=== PATIENT | female | born 1980 ===

== ENCOUNTER 2017-05-01 08:40 | Emergency (ER) | payer SELFPAY ==
[2017-05-01 09:13] VITALS: RESP 18
[2017-05-01 09:18] VITALS: BP 134/87; O2SAT 98
[2017-05-01 09:21] VITALS: TEMP 98.8
[2017-05-01] MEDS ORDERED: Albuterol-Ipratrop 3 mg / 0.5 (3 ml) UD ONE ×2 (09:23→09:24)
[2017-05-01] MEDS ORDERED: Albuterol-Ipratrop 3 mg / 0.5 (3 ml) UD INH STA ×3 (09:26→10:27)
[2017-05-01 10:01] LABS: BASO # 0.1 K/uL (0.0-0.2); BASO % 0.8 % (0.0-2.0); EOS # 0.9 K/uL (0.0-0.7); EOS % 10.1 % (0.0-4.0); HEMATOCRIT 41.3 % (34.0-47.0); LYMPH % 23.1 % (20.0-40.0); MEAN CELL VOLUME 83.4 fl (81.0-99.0); MEAN CORPUSCULAR HEMOGLOBIN 27.6 pg (27.0-31.0); MEAN CORPUSCULAR HGB CONC 33.2 g/dL (33.0-37.0); MEAN PLATELET VOLUME 8.5 fl (7.2-11.7); MONO # 0.5 K/uL (0.0-0.8); MONO % 5.9 % (0.0-10.0); NEUT # 5.3 K/uL (1.8-7.0); NEUT % 60.1 % (50.0-75.0); RED CELL DISTRIBUTION WIDTH 13.8 % (11.5-14.5); WHITE BLOOD COUNT 8.7 K/uL (4.8-10.8)
[2017-05-01 10:11] LABS: BLOOD UREA NITROGEN 16 mg/dl (7-17); CALCIUM 8.7 mg/dL (8.4-10.2); CARBON DIOXIDE 23 mmol/L (22-30); CHLORIDE 107 mmol/L (98-107); GFR AFRICAN-AMERICAN > 60; GLUCOSE,RANDOM 100 mg/dL (65-105); POTASSIUM 4.1 MMOL/L (3.6-5.0); SODIUM 142 mmol/l (132-148)
--- NOTE | 2017-05-01 10:13 | ED PDOC ---
HPI: SOB/CHF/COPD Time Seen by Provider: 05/01/17 09:04 Chief Complaint (Nursing): Shortness Of Breath Chief Complaint (Provider): Shortness of breath History Per: Patient History/Exam Limitations: no limitations Onset/Duration Of Symptoms: Days (2) Current Symptoms Are (Timing): Still Present Additional Complaint(s): Patient is a 37 y/o female with a past medical history of diabetes presenting to the emergency department for shortness of breath with associated wheezing, chest pain, and dry cough x2 days that is worse this morning. Reports using nebulizer once with no relief of symptoms. Also notes having a similar attack last year and was admitted once for same complaint, but denies a history of asthma or intubation. Also denies fever and other complaints. PCP: Dr. Lauri Jasso Past Medical History Reviewed: Historical Data, Nursing Documentation, Vital Signs Vital Signs: Last Vital Signs Temp 98.8 F 05/01/17 09:20 Pulse 90 05/01/17 12:44 Resp 18 05/01/17 09:17 BP 134/87 05/01/17 09:17 Pulse Ox 98 05/01/17 12:44 - Medical History PMH: Asthma, Diabetes Denies: Chronic Kidney Disease - Surgical History Surgical History: Appendectomy, Cholecystectomy, - Family History Family History: States: Unknown Family Hx - Social History Current smoker - smoking cessation education provided: No Ex-Smoker (has not smoked in the last 12 months): No Alcohol: None Drugs: Denies - Home Medications Home Medications: Ambulatory Orders Medication Instructions Recorded Prednisone 40 mg PO DAILY #10 tab 08/06/15 Azithromycin [Zithromax Z-Samir] 250 mg PO DAILY #1 packet 09/02/15 Methylprednisolone [Medrol] 8 mg PO DAILY #7 tab 09/02/15 Omeprazole 20 mg PO DAILY #30 ecc 09/02/15 Azithromycin [Zithromax] 250 mg PO DAILY #6 tablet 09/24/15 Promethazine/Codeine 5 ml PO Q8 #60 ml 09/24/15 [Codeine/Promethazine 10 MG/5 Ml-6.25 MG/5 Ml] predniSONE [predniSONE Tab] 10 mg PO TID #15 tab 09/24/15 Clindamycin [Cleocin] 300 mg PO TID #30 cap 12/17/15 Naproxen [Naprosyn] 500 mg PO Q12H #20 tab 12/17/15 Ibuprofen [Motrin] 600 mg PO Q8 PRN #21 tab 04/05/16 Penicillin VK [Pen-Vee K] 500 mg PO QID #40 tab 04/05/16 Albuterol 0.083% [Albuterol 0.083% 2.5 mg IH Q4H PRN #50 neb 05/01/17 Inhal Elaine (2.5 mg/3 ml) UD] Albuterol HFA [Ventolin HFA 90 2 puff IH Q4H #1 puff 05/01/17 mcg/actuation (8 g)] Fluticasone/Salmeterol 250/50 1 puff IH Q12 #1 inh 05/01/17 [Advair Diskus] Prednisone 50 mg PO DAILY #5 tablet 05/01/17 - Allergies Allergies/Adverse Reactions: Allergies Allergy/AdvReac Type Severity Reaction Status Date / Time No Known Allergies Allergy Verified 12/17/15 12:41 Review of Systems ROS Statement: Except As Marked, All Systems Reviewed And Found Negative Constitutional: Negative for: Fever Cardiovascular: Positive for: Chest Pain Respiratory: Positive for: Cough (dry), Shortness of Breath, Wheezing Physical Exam - Reviewed Nursing Documentation Reviewed: Yes Vital Signs Reviewed: Yes - Physical Exam Appears: Positive for: Uncomfortable, In Acute Distress Head Exam: Positive for: ATRAUMATIC, NORMAL INSPECTION, NORMOCEPHALIC Skin: Positive for: Normal Color, Warm, DRY Eye Exam: Positive for: Normal appearance Neck: Positive for: Normal, Painless ROM Respiratory: Positive for: Decreased Breath Sounds (bilateral), Accessory Muscle Use, Wheezing (right sideded), Respiratory Distress Gastrointestinal/Abdominal: Positive for: Normal Exam, Soft. Negative for: Tenderness Extremity: Positive for: Normal ROM. Negative for: Pedal Edema Neurologic/Psych: Positive for: Alert, Oriented (x3) - Laboratory Results Result Diagrams: 05/01/17 09:53 05/01/17 09:53 - ECG ECG Rhythm: Positive for: Normal QRS, Normal ST Segment, Sinus Rhythm. Negative for: ST/T Changes Rate: 90 O2 Sat by Pulse Oximetry: 98 (RA) Pulse Ox Interpretation: Normal Nebulizer Treatments/Peak Flow - Duonebs Number of Bronchodilator Doses given?: 3 - Pre/Post Peak Flow Pre Treatment Peak Flow: 160 Post treatment Peak Flow: 200 - Steroid Treatment Steroid: IV - Clinical Response Clinical Response: Improved Medical Decision Making Medical Decision Making: Time: 09:26 Initial impression: Respiratory distress. Differential diagnoses include but not limited to: asthma exacerbation, pneumonia, and bronchitis. Initial plan: EKG Labs Chest X-ray Albuterol 3 mL INH Prednisone 125 mg IVP Blood Culture Peak flow assessment pre/post treatment Reevaluation 1215pm Pt is significantly improved subjectively and on the exam. Ambulating without dyspnea or hypoxia in ED. Scribe Attestation: Documented by Gracie Elias, acting as a scribe for Dave Dave MD. Provider Scribe Attestation: All medical record entries made by the Scribe were at my direction and personally dictated by me. I have reviewed the chart and agree that the record accurately reflects my personal performance of the history, physical exam, medical decision making, and the department course for this patient. I have also personally directed, reviewed, and agree with the discharge instructions and disposition. Disposition - Clinical Impression Clinical Impression: Bronchitis - Patient ED Disposition Is Patient to be Admitted: No Doctor Will See Patient In The: Office Counseled Patient/Family Regarding: Studies Performed, Diagnosis, Need For Followup - Disposition Referrals: [facility] [Outside] Disposition: Routine/Home Disposition Time: 12:47 Condition: GOOD Additional Instructions: Take your medications as instructed. Follow up with your PCP in 2-3 days. Prescriptions: Albuterol 0.083% [Albuterol 0.083% Inhal Elaine (2.5 mg/3 ml) UD] 2.5 mg IH Q4H PRN #50 neb PRN Reason: dyspnea Albuterol HFA [Ventolin HFA 90 mcg/actuation (8 g)] 2 puff IH Q4H #1 puff Fluticasone/Salmeterol 250/50 [Advair Diskus] 1 puff IH Q12 #1 inh Prednisone 50 mg PO DAILY #5 tablet Instructions: Acute Bronchitis (ED)
[2017-05-01 10:37] VITALS: PULSE 90
--- NOTE | 2017-05-01 12:27 | RAD ---
HISTORY: Dyspnea COMPARISON: 09/24/2015. FINDINGS: LUNGS: No active pulmonary disease. PLEURA: No significant pleural effusion identified, no pneumothorax apparent. CARDIOVASCULAR: Normal. OSSEOUS STRUCTURES: No significant abnormalities. VISUALIZED UPPER ABDOMEN: Normal. OTHER FINDINGS: None. IMPRESSION: No active disease. No significant interval change compared to the prior examination(s). Limitations of the current examination: Poor inspiratory effort, portable technique.
--- NOTE | 2017-05-02 08:46 | CARD ---
APPROVED REPORT EKG Measurement Heart [id number] <Conclusion> Normal sinus rhythm Left anterior fascicular block Abnormal ECG
== END 2017-05-01 13:30 | disposition home or self-care (01) ==
LOC: H.ER 08:40
DX: J20.9 Acute bronchitis, unspecified (principal); E11.9 Type 2 diabetes mellitus without complications
CPT/HCPCS: 71010; 80048; 81025; 83880; 84484; 85025; 87040; 93005; 94640; 96374; 99283; J2930

== ENCOUNTER 2017-05-22 12:41 | Observation (INO) | payer SELFPAY ==
[2017-05-22] MEDS ORDERED: Albuterol-Ipratrop 3 mg / 0.5 (3 ml) UD ONE ×2 (12:54→14:57)
[2017-05-22] MEDS ORDERED: Albuterol-Ipratrop 3 mg / 0.5 (3 ml) UD INH STA ×2 (13:09→14:54)
--- NOTE | 2017-05-22 13:21 | ED PDOC ---
HPI: SOB/CHF/COPD Time Seen by Provider: 05/22/17 12:50 Chief Complaint (Nursing): Shortness Of Breath Chief Complaint (Provider): Shortness Of Breath History Per: Patient History/Exam Limitations: no limitations Onset/Duration Of Symptoms: Days (x 2 weeks) Current Symptoms Are (Timing): Still Present Recently: Seen In ED Additional Complaint(s): Myra is a 37 y/o who presents to the ED complaining of cough and difficulty breathing since yesterday. States no medical history but that she was seen here 2 weeks ago for the same complaint, and treated with Albuterol and Prednisone. Patient is a nonsmoker. No fever or chills. PMD: Lauri Jasso Past Medical History Reviewed: Historical Data, Nursing Documentation, Vital Signs Vital Signs: Last Vital Signs Temp 98.9 F 05/22/17 12:43 Pulse 96 H 05/22/17 12:43 Resp 16 05/22/17 12:43 BP 131/60 05/22/17 12:43 Pulse Ox 93 L 05/22/17 12:43 - Medical History PMH: Asthma, Diabetes Denies: Chronic Kidney Disease - Surgical History Surgical History: Appendectomy, Cholecystectomy, - Family History Family History: States: Unknown Family Hx - Home Medications Home Medications: Ambulatory Orders Medication Instructions Recorded Prednisone 40 mg PO DAILY #10 tab 08/06/15 Azithromycin [Zithromax Z-Samir] 250 mg PO DAILY #1 packet 09/02/15 Methylprednisolone [Medrol] 8 mg PO DAILY #7 tab 09/02/15 Omeprazole 20 mg PO DAILY #30 ecc 09/02/15 Azithromycin [Zithromax] 250 mg PO DAILY #6 tablet 09/24/15 Promethazine/Codeine 5 ml PO Q8 #60 ml 09/24/15 [Codeine/Promethazine 10 MG/5 Ml-6.25 MG/5 Ml] predniSONE [predniSONE Tab] 10 mg PO TID #15 tab 09/24/15 Clindamycin [Cleocin] 300 mg PO TID #30 cap 12/17/15 Naproxen [Naprosyn] 500 mg PO Q12H #20 tab 12/17/15 Ibuprofen [Motrin] 600 mg PO Q8 PRN #21 tab 04/05/16 Penicillin VK [Pen-Vee K] 500 mg PO QID #40 tab 04/05/16 Albuterol 0.083% [Albuterol 0.083% 2.5 mg IH Q4H PRN #50 neb 05/01/17 Inhal Elaine (2.5 mg/3 ml) UD] Albuterol HFA [Ventolin HFA 90 2 puff IH Q4H #1 puff 05/01/17 mcg/actuation (8 g)] Fluticasone/Salmeterol 250/50 1 puff IH Q12 #1 inh 05/01/17 [Advair Diskus] Prednisone 50 mg PO DAILY #5 tablet 05/01/17 - Allergies Allergies/Adverse Reactions: Allergies Allergy/AdvReac Type Severity Reaction Status Date / Time No Known Allergies Allergy Verified 12/17/15 12:41 Review of Systems ROS Statement: Except As Marked, All Systems Reviewed And Found Negative Constitutional: Negative for: Fever, Chills Respiratory: Positive for: Cough, Shortness of Breath Physical Exam - Reviewed Nursing Documentation Reviewed: Yes Vital Signs Reviewed: Yes - Physical Exam Appears: Positive for: Non-toxic, No Acute Distress Head Exam: Positive for: ATRAUMATIC, NORMAL INSPECTION, NORMOCEPHALIC Skin: Positive for: Normal Color, Warm, Dry Eye Exam: Positive for: EOMI, Normal appearance, PERRL Neck: Positive for: Normal, Painless ROM, Supple Cardiovascular/Chest: Positive for: Regular Rate, Rhythm. Negative for: Murmur Respiratory: Positive for: Decreased Breath Sounds (diminished air flow), Respiratory Distress (Moderate) Extremity: Positive for: Normal ROM. Negative for: Pedal Edema, Deformity Neurologic/Psych: Positive for: Alert, Oriented. Negative for: Motor/Sensory Deficits - ECG O2 Sat by Pulse Oximetry: 93 (RA) Pulse Ox Interpretation: Normal Medical Decision Making Medical Decision Making: Time: 13:09 Initial Plan: --BMP --CBC --Duoneb x 3 --Methylprednisolone IV --Peak flow pre/post treatment --Pending reevaluation Scribe Attestation: Documented by Alexa Edwards, acting as a scribe for Sylvester Juárez PA-C Provider Scribe Attestation: All medical record entries made by the Scribe were at my direction and personally dictated by me. I have reviewed the chart and agree that the record accurately reflects my personal performance of the history, physical exam, medical decision making, and the department course for this patient. I have also personally directed, reviewed, and agree with the discharge instructions and disposition. Disposition - Disposition
[2017-05-22 13:26] LABS: BASO % 0.5 % (0.0-2.0); EOS # 1.4 K/uL (0.0-0.7); EOS % 13.9 % (0.0-4.0); HEMATOCRIT 42.6 % (34.0-47.0); LYMPH # 2.3 K/uL (1.0-4.3); LYMPH % 22.2 % (20.0-40.0); MEAN CELL VOLUME 83.8 fl (81.0-99.0); MEAN CORPUSCULAR HEMOGLOBIN 27.3 pg (27.0-31.0); MEAN CORPUSCULAR HGB CONC 32.6 g/dL (33.0-37.0); MEAN PLATELET VOLUME 8.3 fl (7.2-11.7); MONO # 0.7 K/uL (0.0-0.8); MONO % 6.4 % (0.0-10.0); NEUT # 5.8 K/uL (1.8-7.0); NRBC % 0.1 % (0.0-0.0); WHITE BLOOD COUNT 10.2 K/uL (4.8-10.8)
[2017-05-22 13:44] LABS: BLOOD UREA NITROGEN 15 mg/dl (7-17); CALCIUM 9.3 mg/dL (8.4-10.2); CARBON DIOXIDE 24 mmol/L (22-30); CHLORIDE 104 mmol/L (98-107); GFR AFRICAN-AMERICAN > 60; GLUCOSE,RANDOM 94 mg/dL (65-105); POTASSIUM 3.8 MMOL/L (3.6-5.0); SODIUM 144 mmol/l (132-148)
[2017-05-22] MEDS ORDERED: Magnesium Sulfate 2 gm/50 ml 2 GM/50 ML BAG IVPB ONE (16:02)
[2017-05-22] MEDS ORDERED: Magnesium Sulfate 2 gm/50 ml 2 GM/50 ML BAG ONE (16:28)
--- NOTE | 2017-05-22 16:57 | RAD ---
HISTORY: sob COMPARISON: Comparison is made to 05/01/2017 TECHNIQUE: Chest PA and lateral FINDINGS: LUNGS: No evidence of new infiltrate or consolidation in the lungs. PLEURA: No significant pleural effusion identified. No pneumothorax apparent. CARDIOVASCULAR: Normal. OSSEOUS STRUCTURES: No significant abnormalities. VISUALIZED UPPER ABDOMEN: Normal. OTHER FINDINGS: None. IMPRESSION: No evidence of new consolidation in the lungs.
--- NOTE | 2017-05-22 17:06 | CP.PCM.HP ---
History of Present Illness - History of Present Illness History of Present Illness: Myra Sutherland is a pleasant 37 yo lady with past medical history of PCOS, dyslipidemia, IGT who presented to the ED with SOB. She stated that symptoms began 2 weeks ago and was diagnosed with bronchitis. Symptoms progressively worsened yesterday morning requiring her to use her inhaler every hour until presentation to the ER. Shares of night time cough nightly for the past 2 weeks. Shares of similar symtoms 2 years ago, where she was treated for with duonebs. She shares of chills this morning. Denies nausea/vomiting/ diarrhea. Denies official diagnosis of asthma. Pmhx: PCOS, IGT, dyslipidemia Psurghx: appendix 1986; galbladder 2009; c/s 2013 Meds: Albuterol 108 mcg; Fluticasone, Metformin 850 mg dDaily; Ocella 3-0.03 Psochx: Denies: smoking, alcohol, illicit drugs; Pt shares of living in the basement for 4 years; mold was found then when they remodeled. Recently found mold again in one of the wall. They have a pet dog. They also have carpeting. ED vitals: 135/71 86 bpm 95% on 2L NC, rr 20; lowest O2 sat 93 % at 13:22 ED course: Duonebs x 4; Mg; O2 NC 2 L pmd: Florencio CHRISTOPHER chart reviewed Present on Admission - Present on Admission Any Indicators Present on Admission: No Review of Systems - Review of Systems Systems not reviewed;Unavailable: Respiratory Distress - Constitutional Constitutional: As Per HPI - Respiratory Respiratory: Dyspnea, Wheezing Past Patient History - Past Medical History & Family History Past Medical History?: Yes - Past Social History Smoking Status: Never Smoked Alcohol: None Drugs: Denies - CARDIAC Hx Cardiac Disorders: No - PULMONARY Hx Asthma: Yes Other/Comment: First episode similar to today was 2 years ago. Shared of Bronchitis diagnosis 2 weeks ago. - NEUROLOGICAL Hx Neurological Disorder: No - HEENT Hx HEENT Problems: No - RENAL Hx Chronic Kidney Disease: No - ENDOCRINE/METABOLIC Hx Endocrine Disorders: No Other/Comment: PCOS, IGT - HEMATOLOGICAL/ONCOLOGICAL Hx Blood Disorders: No - INTEGUMENTARY Hx Dermatological Problems: No - MUSCULOSKELETAL/RHEUMATOLOGICAL Hx Musculoskeletal Disorders: No - GASTROINTESTINAL Hx Gastrointestinal Disorders: No - GENITOURINARY/GYNECOLOGICAL Hx Genitourinary Disorders: No - PSYCHIATRIC Hx Psychophysiologic Disorder: No Hx Substance Use: No - SURGICAL HISTORY Hx Appendectomy: Yes Hx Cholecystectomy: Yes - ANESTHESIA Hx Anesthesia: Yes Hx Anesthesia Reactions: No Hx Malignant Hyperthermia: No Meds Allergies/Adverse Reactions: Allergies Allergy/AdvReac Type Severity Reaction Status Date / Time No Known Allergies Allergy Verified 12/17/15 12:41 Physical Exam - Head Exam Head Exam: NORMAL INSPECTION - Eye Exam Eye Exam: EOMI, Normal appearance - Respiratory Exam Respiratory Exam: Wheezes - Cardiovascular Exam Cardiovascular Exam: REGULAR RHYTHM, +S1, +S2 - GI/Abdominal Exam GI & Abdominal Exam: Normal Bowel Sounds, Soft - Extremities Exam Extremities exam: Positive for: normal inspection - Neurological Exam Neurological exam: Alert, Oriented x3 - Psychiatric Exam Psychiatric exam: Normal Affect, Normal Mood Results - Vital Signs Recent Vital Signs: Last Vital Signs Temp 98.9 F 05/22/17 12:43 Pulse 86 05/22/17 16:49 Resp 20 05/22/17 16:49 BP 135/71 05/22/17 16:49 Pulse Ox 95 05/22/17 16:49 - Labs Result Diagrams: 05/22/17 13:15 05/22/17 13:15 Labs: Laboratory Results - last 24 hr 05/22/17 05/22/17 13:15 13:15 WBC 10.2 RBC 5.09 Hgb 13.9 Hct 42.6 MCV 83.8 MCH 27.3 MCHC 32.6 L RDW 14.0 Plt Count 236 MPV 8.3 Neut % (Auto) 57.0 Lymph % (Auto) 22.2 [place] % (Auto) 6.4 Eos % (Auto) 13.9 H Baso % (Auto) 0.5 Neut # 5.8 Lymph # 2.3 [place] # 0.7 Eos # 1.4 H Baso # 0.0 Sodium 144 Potassium 3.8 Chloride 104 Carbon Dioxide 24 Anion Gap 19 BUN 15 Creatinine 0.5 L Est GFR ( Amer) > 60 Est GFR (Non-Af Amer) > 60 Random Glucose 94 Calcium 9.3 Assessment & Plan - Assessment and Plan (Free Text) Assessment: asthma exacerbation Plan: 37 yo F pmhx PCOS, IGT, dyslipidemia presents with SOB. 1) Asthma exacerbation - Admit to Telemetry - Continue with duoneb, Mg, O2 via NC, methylprednisolone - Follow CBC, CXR 2) DVT prophylaxis - scd 3) PCOS/IGT -hold ocp; continue metformin Bob Nguyen, PGY1
[2017-05-22] MEDS ORDERED: Influenza Vaccine 18yr & older 0.5 ML/45 MCG SYR IM ONE (17:55)
[2017-05-22] MEDS: Albuterol 0.083% Inhal Sol (2.5 mg/3 mL) UD INH SCH ×2 (19:44→23:32)
[2017-05-23] MEDS: Albuterol 0.083% Inhal Sol (2.5 mg/3 mL) UD INH SCH ×3 (04:44→11:28)
[2017-05-23 05:52] LABS: BASO % 0.4 % (0.0-2.0); EOS % 0.1 % (0.0-4.0); HEMATOCRIT 41.4 % (34.0-47.0); LYMPH # 1.6 K/uL (1.0-4.3); LYMPH % 15.1 % (20.0-40.0); MEAN CELL VOLUME 84.5 fl (81.0-99.0); MEAN CORPUSCULAR HEMOGLOBIN 27.7 pg (27.0-31.0); MEAN CORPUSCULAR HGB CONC 32.8 g/dL (33.0-37.0); MEAN PLATELET VOLUME 8.2 fl (7.2-11.7); MONO # 0.5 K/uL (0.0-0.8); MONO % 4.6 % (0.0-10.0); NEUT # 8.4 K/uL (1.8-7.0); NEUT % 79.8 % (50.0-75.0); RED CELL DISTRIBUTION WIDTH 14.2 % (11.5-14.5); WHITE BLOOD COUNT 10.5 K/uL (4.8-10.8)
--- NOTE | 2017-05-23 09:35 | RAD ---
HISTORY: asthma exacerbation COMPARISON: 05/22/2017 TECHNIQUE: Chest PA and lateral FINDINGS: LUNGS: No active pulmonary disease. PLEURA: No significant pleural effusion identified. No pneumothorax apparent. CARDIOVASCULAR: Normal. OSSEOUS STRUCTURES: No significant abnormalities. VISUALIZED UPPER ABDOMEN: Normal. OTHER FINDINGS: None. IMPRESSION: No active disease.
--- NOTE | 2017-05-23 10:50 | CP.PCM.PN ---
Subjective - Date & Time of Evaluation Date of Evaluation: 05/23/17 Time of Evaluation: 10:15 - Subjective Subjective: 37 yo pmhx of PCOS, IGT, and dyslipidemia presented to ED with dyspnea; Asthma exacerbation. She shares of significant improvement of symptoms. She shares of being able to breathe without laboring. Denies overnight events. Denies N/V/Dizzines Objective - Vital Signs/Intake and Output Vital Signs (last 24 hours): Temp Pulse Resp BP Pulse Ox 98.5 F 96 H 14 122/76 96 05/23/17 07:57 05/23/17 09:00 05/23/17 07:57 05/23/17 07:57 05/23/17 07:57 Intake and Output: 05/23/17 05/23/17 06:59 18:59 Intake Total 480 Balance 480 - Medications Medications: Current Medications Albuterol Sulfate (Albuterol 0.083% Inhal Elaine (2.5 Mg/3 Ml) Ud) 2.5 mg INH RQ4 [facility] Last Admin: 05/23/17 07:49 Dose: 2.5 mg Metformin HCl (Glucophage) 850 mg PO DAILY [facility] Last Admin: 05/23/17 08:45 Dose: 850 mg Prednisone (Prednisone Tab) 40 mg PO DAILY [facility] Last Admin: 05/23/17 08:46 Dose: 40 mg - Labs Labs: 05/23/17 05:00 05/22/17 13:15 - Head Exam Head Exam: NORMAL INSPECTION - Eye Exam Eye Exam: EOMI, Normal appearance - ENT Exam ENT Exam: Mucous Membranes Moist - Neck Exam Neck Exam: Full ROM - Respiratory Exam Additional comments: R lower lung wheezing with coughing - Cardiovascular Exam Cardiovascular Exam: REGULAR RHYTHM, +S1, +S2 - Extremities Exam Extremities Exam: Full ROM - Neurological Exam Neurological Exam: Alert, Awake, CN II-XII Intact, Oriented x3 - Psychiatric Exam Psychiatric exam: Normal Affect, Normal Mood - Additional Findings Additional findings: ambulating well Assessment and Plan - Assessment and Plan (Free Text) Assessment: Asthma exacerbation significantly improved s/p duonebs, Mg. Plan: 37 yo F pmhx PCOS, IGT, dyslipidemia presented with dyspnea. 1) Asthma exacerbation - Continue with duoneb, O2 via NC, methylprednisolone 2) DVT prophylaxis - scd 3) PCOS/IGT -hold ocp; continue metformin banerjee [email or web address]
[2017-05-23 12:17] VITALS: BP 128/80; PULSE 106; RESP 16; TEMP 98.1; O2SAT 97
--- NOTE | 2017-05-23 13:58 | CP.PCM.DIS ---
Provider - Provider Date of Admission: 05/22/17 16:36 Attending physician: Yuki Suarez MD Time Spent in preparation of Discharge (in minutes): 20 Hospital Course - Lab Results Lab Results: Most Recent Lab Values WBC 10.5 K/uL (4.8-10.8) 05/23/17 05:00 RBC 4.91 Mil/uL (3.80-5.20) 05/23/17 05:00 Hgb 13.6 g/dL (12.0-16.0) 05/23/17 05:00 Hct 41.4 % (34.0-47.0) 05/23/17 05:00 MCV 84.5 fl (81.0-99.0) 05/23/17 05:00 MCH 27.7 pg (27.0-31.0) 05/23/17 05:00 MCHC 32.8 g/dL (33.0-37.0) L 05/23/17 05:00 RDW 14.2 % (11.5-14.5) 05/23/17 05:00 Plt Count 248 K/uL (130-400) 05/23/17 05:00 MPV 8.2 fl (7.2-11.7) 05/23/17 05:00 Neut % (Auto) 79.8 % (50.0-75.0) H 05/23/17 05:00 Lymph % (Auto) 15.1 % (20.0-40.0) L 05/23/17 05:00 [place] % (Auto) 4.6 % (0.0-10.0) 05/23/17 05:00 Eos % (Auto) 0.1 % (0.0-4.0) 05/23/17 05:00 Baso % (Auto) 0.4 % (0.0-2.0) 05/23/17 05:00 Neut # 8.4 K/uL (1.8-7.0) H 05/23/17 05:00 Lymph # 1.6 K/uL (1.0-4.3) 05/23/17 05:00 [place] # 0.5 K/uL (0.0-0.8) 05/23/17 05:00 Eos # 0.0 K/uL (0.0-0.7) 05/23/17 05:00 Baso # 0.0 K/uL (0.0-0.2) 05/23/17 05:00 Sodium 144 mmol/l (132-148) 05/22/17 13:15 Potassium 3.8 MMOL/L (3.6-5.0) 05/22/17 13:15 Chloride 104 mmol/L (98-107) 05/22/17 13:15 Carbon Dioxide 24 mmol/L (22-30) 05/22/17 13:15 Anion Gap 19 (10-20) 05/22/17 13:15 BUN 15 mg/dl (7-17) 05/22/17 13:15 Creatinine 0.5 mg/dL (0.7-1.2) L 05/22/17 13:15 Est GFR ( Amer) > 60 05/22/17 13:15 Est GFR (Non-Af Amer) > 60 05/22/17 13:15 POC Glucose (mg/dL) 144 mg/dL (65-110) H 05/23/17 11:08 Random Glucose 94 mg/dL (65-105) 05/22/17 13:15 Calcium 9.3 mg/dL (8.4-10.2) 05/22/17 13:15 - Hospital Course Hospital Course: 37 yo F with pmhx of PCOS IGT, dyslipidemia with acute asthma exacerbation. Treated with duonebs, Mg, methylpregnisolone. Symptoms significantly improved; non labored breathing with great saturation. Discharge Exam - Head Exam Head Exam: NORMAL INSPECTION Discharge Plan - Discharge Medications Prescriptions: Albuterol HFA [Ventolin HFA 90 mcg/actuation (8 g)] 2 puff IH Q4H #1 puff Calcium Carbonate [Caltrate] 1 tab PO DAILY #1 tab Ethinyl Estradiol/Drospirenone [Ocella 3 mg-0.03 mg Tablet] 1 tab PO DAILY #1 tablet Fluticasone/Salmeterol [Fluticasone-Salmeterol 113-14] 1 each IH Q12 #1 aer.pow.ba metFORMIN [glucOPHAGE] 850 mg PO DAILY #1 tab predniSONE [predniSONE Tab] 40 mg PO DAILY #7 tab - Follow Up Plan Condition: GOOD Disposition: HOME/ ROUTINE Additional Instructions: Continue with nebulizer, steroid treatment. Follow up in clinic in one week. call for appointment. [phone].
== END 2017-05-23 14:47 | disposition home or self-care (01) ==
LOC: H.ER 12:41 → H.ERHOLD 16:36 → H.TEL 17:27
PROVIDERS: ADMIT Family Medicine Geriatric Medicine; ATTEND Family Medicine Geriatric Medicine
DX: J45.901 Unspecified asthma with (acute) exacerbation (principal); E28.2 Polycystic ovarian syndrome; E78.5 Hyperlipidemia, unspecified; Z23 Encounter for immunization; E11.9 Type 2 diabetes mellitus without complications
CPT/HCPCS: 36415; 71020; 80048; 81025; 82164; 82948; 85025; 86039; 90471; 94640; 96374; 97161; 99285; G0378; G8978; G8979; G8980; J2930; Q2035

== ENCOUNTER 2017-07-22 20:55 | Emergency (ER) | payer SELFPAY ==
[2017-07-22] MEDS ORDERED: Albuterol-Ipratrop 3 mg / 0.5 (3 ml) UD INH STA ×3 (21:40→21:42)
[2017-07-22] MEDS ORDERED: Albuterol-Ipratrop 3 mg / 0.5 (3 ml) UD ONE (21:44)
--- NOTE | 2017-07-22 22:59 | ED PDOC ---
HPI: SOB/CHF/COPD Time Seen by Provider: 07/22/17 21:21 Chief Complaint (Nursing): Shortness Of Breath Chief Complaint (Provider): Shortness Of Breath History Per: Patient History/Exam Limitations: no limitations Onset/Duration Of Symptoms: Days (x 4) Current Symptoms Are (Timing): Still Present Additional Complaint(s): 37 year old female with past medical history of asthma presents to the ED with difficulty breathing and associated dry cough and wheezing, onset 4 days. Patient reports taking nebulizer every 4 hours with no relief. Denies fever and chest pain. PMD: Dr. Opal Baez MD Past Medical History Reviewed: Historical Data, Nursing Documentation, Vital Signs Vital Signs: Last Vital Signs Temp 99.2 F 07/22/17 21:04 Pulse 108 H 07/22/17 21:04 Resp 19 07/22/17 21:23 BP 115/61 07/22/17 21:04 Pulse Ox 98 07/22/17 23:46 - Medical History PMH: Asthma, Diabetes, Hyperlipidemia Denies: Chronic Kidney Disease - Surgical History Surgical History: Appendectomy, Cholecystectomy, - Family History Family History: States: Unknown Family Hx - Home Medications Home Medications: Ambulatory Orders Medication Instructions Recorded Calcium Carbonate [Caltrate] 1 tab PO DAILY #1 tab 05/23/17 Ethinyl Estradiol/Drospirenone 1 tab PO DAILY #1 tablet 05/23/17 [Ocella 3 mg-0.03 mg Tablet] metFORMIN [glucOPHAGE] 850 mg PO DAILY #1 tab 05/23/17 Albuterol 0.083% [Albuterol 3 ml IH Q4 PRN #20 neb 07/23/17 Sulfate 3 Ml] Albuterol HFA [Ventolin HFA 90 2 puff IH Q4H #1 puff 07/23/17 mcg/actuation (8 g)] Fluticasone/Salmeterol 1 each IH Q12 #1 aer.pow.ba 07/23/17 [Fluticasone-Salmeterol 113-14] predniSONE [predniSONE Tab] 40 mg PO DAILY #7 tab 07/23/17 - Allergies Allergies/Adverse Reactions: Allergies Allergy/AdvReac Type Severity Reaction Status Date / Time No Known Allergies Allergy Verified 07/22/17 21:06 Review of Systems ROS Statement: Except As Marked, All Systems Reviewed And Found Negative Constitutional: Negative for: Fever Cardiovascular: Negative for: Chest Pain Respiratory: Positive for: Cough (dry), Shortness of Breath Physical Exam - Reviewed Nursing Documentation Reviewed: Yes Vital Signs Reviewed: Yes - Physical Exam Appears: Positive for: Non-toxic, No Acute Distress Head Exam: Positive for: ATRAUMATIC, NORMOCEPHALIC Skin: Positive for: Normal Color, Warm, Dry Eye Exam: Positive for: EOMI, Normal appearance, PERRL Neck: Positive for: Normal, Painless ROM, Supple Cardiovascular/Chest: Positive for: Regular Rate, Rhythm. Negative for: Murmur Respiratory: Positive for: Decreased Breath Sounds (on the right), Wheezing (on the left ) Gastrointestinal/Abdominal: Positive for: Normal Exam, Soft Back: Positive for: Normal Inspection. Negative for: L CVA Tenderness, R CVA Tenderness, Vertebral Tenderness Extremity: Positive for: Normal ROM. Negative for: Pedal Edema, Deformity Neurologic/Psych: Positive for: Alert, Oriented. Negative for: Motor/Sensory Deficits - ECG O2 Sat by Pulse Oximetry: 95 (RA) Pulse Ox Interpretation: Normal - Progress Re-evaluation Time: 23:57 Condition: Re-examined, Improved Medical Decision Making Medical Decision Making: Time: 21:50 Impression: asthma exacerbation, acute bronchitis Initial Plan: --EKG --Duoneb 3 ml INH --Duoneb 3 ml INH --Duoneb 3 ml INH --Methlyprednisolone 125 mg IVP --Prednisone 60 mg PO --Peak Flow Pre/ Post --Peak Flow Pre/ Post --Peak Flow Pre/ Post EKG has been reviewed and shows normal sinus rhythm, rate 95, normal QRS and no ST changes. Scribe Attestation: Documented by Marsha Urban, acting as a scribe for Dave Dave MD Provider Scribe Attestation: All medical record entries made by the Scribe were at my direction and personally dictated by me. I have reviewed the chart and agree that the record accurately reflects my personal performance of the history, physical exam, medical decision making, and the department course for this patient. I have also personally directed, reviewed, and agree with the discharge instructions and disposition Disposition - Clinical Impression Clinical Impression: Asthma exacerbation - Patient ED Disposition Is Patient to be Admitted: No Doctor Will See Patient In The: Office Counseled Patient/Family Regarding: Studies Performed, Diagnosis, Need For Followup - Disposition Referrals: [facility] [Outside] Disposition: Routine/Home Disposition Time: 23:57 Condition: GOOD Additional Instructions: Follow up with your PCP in 2-3 days. Take your medications as instructed. Prescriptions: Albuterol 0.083% [Albuterol Sulfate 3 Ml] 3 ml IH Q4 PRN #20 neb PRN Reason: Wheezing Albuterol HFA [Ventolin HFA 90 mcg/actuation (8 g)] 2 puff IH Q4H #1 puff Fluticasone/Salmeterol [Fluticasone-Salmeterol 113-14] 1 each IH Q12 #1 aer.pow.ba predniSONE [predniSONE Tab] 40 mg PO DAILY #7 tab Instructions: Asthma (ED)
[2017-07-23 00:20] VITALS: BP 114/64; PULSE 98; RESP 16; TEMP 98.7; O2SAT 97
--- NOTE | 2017-07-23 10:52 | CARD ---
APPROVED REPORT EKG Measurement Heart [id number] <Conclusion> Normal sinus rhythm Left anterior fascicular block Abnormal ECG
== END 2017-07-23 00:19 | disposition home or self-care (01) ==
LOC: H.ER 20:55
DX: J45.901 Unspecified asthma with (acute) exacerbation (principal); E11.9 Type 2 diabetes mellitus without complications; E78.5 Hyperlipidemia, unspecified; J20.9 Acute bronchitis, unspecified; J44.0 Chronic obstructive pulmonary disease with (acute) lower respiratory infection; Z79.84 Long term (current) use of oral hypoglycemic drugs
CPT/HCPCS: 93005; 94150; 94640; 96374; 99284; J2930

== ENCOUNTER 2017-08-17 08:53 | Emergency (ER) | payer SELFPAY ==
[2017-08-17 09:18] VITALS: BP 137/89; PULSE 112; RESP 18; TEMP 100.6; O2SAT 98
--- NOTE | 2017-08-17 09:25 | ED PDOC ---
HPI: CCC, URI, Sore Throat Time Seen by Provider: 08/17/17 09:07 Chief Complaint (Nursing): ENT Problem Chief Complaint (Provider): Sore Throat History Per: Patient History/Exam Limitations: no limitations Onset/Duration Of Symptoms: Days (3 days ago) Current Symptoms Are (Timing): Still Present Additional Complaint(s): 37 y/o with a past medical history of asthma and diabetes, presents to the ED complaining of a sore throat associated with subjective fever, onset of 3 days. Patient reports that she has been having trouble swallowing, and denies any further complaints. PCP: Dr. Jasso Past Medical History Reviewed: Historical Data, Nursing Documentation, Vital Signs Vital Signs: Last Vital Signs Temp 100.6 F H 08/17/17 09:15 Pulse 112 H 08/17/17 09:15 Resp 18 08/17/17 09:15 BP 137/89 08/17/17 09:15 Pulse Ox 98 08/17/17 09:34 - Medical History PMH: Asthma, Diabetes, Hyperlipidemia Denies: Chronic Kidney Disease - Surgical History Surgical History: Appendectomy, Cholecystectomy, - Family History Family History: States: Unknown Family Hx - Social History Current smoker - smoking cessation education provided: No Ex-Smoker (has not smoked in the last 12 months): No Alcohol: None Drugs: Denies - Home Medications Home Medications: Ambulatory Orders Medication Instructions Recorded Calcium Carbonate [Caltrate] 1 tab PO DAILY #1 tab 05/23/17 Ethinyl Estradiol/Drospirenone 1 tab PO DAILY #1 tablet 05/23/17 [Ocella 3 mg-0.03 mg Tablet] metFORMIN [glucOPHAGE] 850 mg PO DAILY #1 tab 05/23/17 Albuterol 0.083% [Albuterol 3 ml IH Q4 PRN #20 neb 07/23/17 Sulfate 3 Ml] Albuterol HFA [Ventolin HFA 90 2 puff IH Q4H #1 puff 07/23/17 mcg/actuation (8 g)] Fluticasone/Salmeterol 1 each IH Q12 #1 aer.pow.ba 07/23/17 [Fluticasone-Salmeterol 113-14] predniSONE [predniSONE Tab] 40 mg PO DAILY #7 tab 07/23/17 Amoxicillin 1,000 mg PO DAILY #18 tablet 08/17/17 Naproxen [Naprosyn] 500 mg PO BID PRN #15 tablet 08/17/17 - Allergies Allergies/Adverse Reactions: Allergies Allergy/AdvReac Type Severity Reaction Status Date / Time No Known Allergies Allergy Verified 07/22/17 21:06 Review of Systems ROS Statement: Except As Marked, All Systems Reviewed And Found Negative Constitutional: Positive for: Fever ENT: Positive for: Throat Pain (painful swallowing) Physical Exam - Reviewed Nursing Documentation Reviewed: Yes Vital Signs Reviewed: Yes - Physical Exam Appears: Positive for: Non-toxic, In Acute Distress (mild painful) Head Exam: Positive for: ATRAUMATIC Skin: Positive for: Normal Color, Warm Eye Exam: Positive for: Normal appearance, EOMI, PERRL ENT: Positive for: Normal ENT Inspection, Pharynx Is (erythematous with bilateral exudates; clear, no drooling), Other (uvula midline; no tonsillar hypertrophy) Neck: Positive for: Normal, Painless ROM, Supple Cardiovascular/Chest: Positive for: Regular Rate, Rhythm. Negative for: Murmur Respiratory: Positive for: Normal Breath Sounds. Negative for: Respiratory Distress Back: Positive for: Normal Inspection Extremity: Positive for: Normal ROM. Negative for: Pedal Edema, Deformity Neurologic/Psych: Positive for: Alert, Oriented. Negative for: Motor/Sensory Deficits - ECG O2 Sat by Pulse Oximetry: 98 (RA) Pulse Ox Interpretation: Normal - Progress Condition: Improved Medical Decision Making Medical Decision Making: Time: --09:19 Impression: --37 y/o female with pharyngitis, uri Plan: --ED Urine --Dexamryhsdonr 20mg IM --ibuprofen 800mg PO --Glucose, Blood, POC --Rapid Strep Group Reassess -- Scribe Attestation: Documented by Filipe Cuevas acting as a scribe for Lise Garza MD. Disposition - Clinical Impression Clinical Impression: Strep pharyngitis - Disposition Referrals: [facility] [Outside] Disposition: Routine/Home Disposition Time: 10:04 Condition: STABLE Prescriptions: Amoxicillin 1,000 mg PO DAILY #18 tablet Naproxen [Naprosyn] 500 mg PO BID PRN #15 tablet PRN Reason: Pain, Moderate (4-7) Instructions: Strep Throat (ED) Forms: [employer] (Belarusian) Print Language: ARMENIAN
== END 2017-08-17 10:11 | disposition home or self-care (01) ==
LOC: H.ER 08:53
DX: J02.0 Streptococcal pharyngitis (principal); E11.9 Type 2 diabetes mellitus without complications; E78.5 Hyperlipidemia, unspecified; J45.909 Unspecified asthma, uncomplicated; R13.10 Dysphagia, unspecified; Z79.84 Long term (current) use of oral hypoglycemic drugs; Z87.891 Personal history of nicotine dependence
CPT/HCPCS: 81025; 82948; 87430; 96372; 99282; J1100

== ENCOUNTER 2017-08-23 18:53 | Emergency (ER) | payer SELFPAY ==
[2017-08-23 19:10] VITALS: BP 155/91; PULSE 80; RESP 16; TEMP 97.5; O2SAT 100
--- NOTE | 2017-08-23 20:33 | ED PDOC ---
HPI: General Adult Time Seen by Provider: 08/23/17 19:29 Chief Complaint (Nursing): Abnormal Labs Chief Complaint (Provider): Abnormal Labs History Per: Patient History/Exam Limitations: no limitations Onset/Duration Of Symptoms: Days (x2 weeks) Additional Complaint(s): 37 y/o female presents to the ED after she was called by a family practice resident for abnormal labs and is unsure why. Patient is concerned about discoloration in her legs x 2 weeks. She noted red patches. Denies fever, chest pain, shortness of breath or any further medical complaints. Past Medical History Reviewed: Historical Data, Nursing Documentation, Vital Signs Vital Signs: Last Vital Signs Temp 97.5 F L 08/23/17 19:09 Pulse 80 08/23/17 19:09 Resp 16 08/23/17 19:09 BP 155/91 H 08/23/17 19:09 Pulse Ox 100 08/23/17 22:06 - Medical History PMH: Asthma, Diabetes, Hyperlipidemia Denies: Chronic Kidney Disease - Surgical History Surgical History: Appendectomy, Cholecystectomy, - Family History Family History: States: Unknown Family Hx - Social History Current smoker - smoking cessation education provided: No (Never Smoked) Alcohol: None Drugs: Denies - Home Medications Home Medications: Ambulatory Orders Medication Instructions Recorded Calcium Carbonate [Caltrate] 1 tab PO DAILY #1 tab 05/23/17 Ethinyl Estradiol/Drospirenone 1 tab PO DAILY #1 tablet 05/23/17 [Ocella 3 mg-0.03 mg Tablet] metFORMIN [glucOPHAGE] 850 mg PO DAILY #1 tab 05/23/17 Albuterol 0.083% [Albuterol 3 ml IH Q4 PRN #20 neb 07/23/17 Sulfate 3 Ml] Albuterol HFA [Ventolin HFA 90 2 puff IH Q4H #1 puff 07/23/17 mcg/actuation (8 g)] Fluticasone/Salmeterol 1 each IH Q12 #1 aer.pow.ba 07/23/17 [Fluticasone-Salmeterol 113-14] predniSONE [predniSONE Tab] 40 mg PO DAILY #7 tab 07/23/17 Amoxicillin 1,000 mg PO DAILY #18 tablet 08/17/17 Naproxen [Naprosyn] 500 mg PO BID PRN #15 tablet 08/17/17 Colloidal Oatmeal [Eucerin Eczema 226 gm TP BID #1 cream..g. 08/23/17 Relief] - Allergies Allergies/Adverse Reactions: Allergies Allergy/AdvReac Type Severity Reaction Status Date / Time No Known Allergies Allergy Verified 07/22/17 21:06 Review of Systems ROS Statement: Except As Marked, All Systems Reviewed And Found Negative (As per HPI, otherwise negative) Constitutional: Negative for: Fever Cardiovascular: Negative for: Chest Pain Respiratory: Negative for: Shortness of Breath Skin: Positive for: Other (Redness and disocoloration of legs) Physical Exam - Reviewed Nursing Documentation Reviewed: Yes Vital Signs Reviewed: Yes - Physical Exam Appears: Positive for: Well, Non-toxic, No Acute Distress Head Exam: Positive for: ATRAUMATIC, NORMAL INSPECTION, NORMOCEPHALIC Skin: Positive for: Normal Color, Warm, Dry, Rash (2.5 cm diameter of scaling erythematous patch bilaterally on legs) Eye Exam: Positive for: Normal appearance ENT: Positive for: Normal ENT Inspection Neck: Positive for: Normal, Painless ROM, Supple Cardiovascular/Chest: Positive for: Regular Rate, Rhythm. Negative for: Murmur Respiratory: Positive for: Normal Breath Sounds. Negative for: Accessory Muscle Use, Respiratory Distress Gastrointestinal/Abdominal: Positive for: Normal Exam, Bowel Sounds, Soft Back: Positive for: Normal Inspection Extremity: Positive for: Normal ROM. Negative for: Deformity Neurologic/Psych: Positive for: Alert, Oriented (x3) - ECG O2 Sat by Pulse Oximetry: 100 (RA) Pulse Ox Interpretation: Normal Medical Decision Making Medical Decision Making: Time: 19:38 Initial Impression: Eczema Plan: Duplex Lower extremity US Time: 21:52 Duplex Lower extremity US FINDINGS: Right deep veins: Normal color and spectral Doppler flow. Normal compressibility. No deep vein thrombosis from common femoral to popliteal vein. Right superficial veins: Unremarkable. Left deep veins: Normal color and spectral Doppler flow. Normal compressibility. No deep vein thrombosis from common femoral to popliteal vein. Left superficial veins: Unremarkable. Soft tissues: No popliteal cyst. IMPRESSION: 1. No evidence of DVT within lower extremities. Time: 22:05 Upon provider reevaluation patient is feeling better, is medically stable, and requires no further treatment in the ED at this time. Patient will be discharged with Rx for Eucerin eczema cream. Counseling was provided and all questions were answered regarding diagnosis and need for follow up with Dr. Jasso. There is agreement to discharge plan. Return if symptoms persist or worsen. Clinical Impression: Scribe Attestation: Documented by Jordi Juárez acting as a scribe for Behzad Mack MD. Scribe Attestation: All medical record entries made by the Scribe were at my direction and personally dictated by me. I have reviewed the chart and agree that the record accurately reflects my personal performance of the history, physical exam, medical decision making, and the department course for this patient. I have also personally directed, reviewed, and agree with the discharge instructions and disposition. Disposition - Clinical Impression Clinical Impression: Eczema - Disposition Referrals: Lauri Jasso MD [Family Provider] - Disposition: Routine/Home Disposition Time: 22:05 Condition: STABLE Prescriptions: Colloidal Oatmeal [Eucerin Eczema Relief] 226 gm TP BID #1 cream..g. Instructions: Dermatitis (ED) Forms: [facility] (Greenlandic) Print Language: THAI
--- NOTE | 2017-08-23 21:53 | US ---
EXAM: US Duplex Bilateral Lower Extremity Veins CLINICAL HISTORY: 37 years old, female; Pain; Leg, lower; Bilateral; Additional info: Discoloration, R/O dvt TECHNIQUE: Real-time ultrasound scan of the veins of the bilateral lower extremities with color Doppler flow, spectral waveform analysis and compression. COMPARISON: No relevant prior studies available. FINDINGS: Right deep veins: Normal color and spectral Doppler flow. Normal compressibility. No deep vein thrombosis from common femoral to popliteal vein. Right superficial veins: Unremarkable. Left deep veins: Normal color and spectral Doppler flow. Normal compressibility. No deep vein thrombosis from common femoral to popliteal vein. Left superficial veins: Unremarkable. Soft tissues: No popliteal cyst. IMPRESSION: 1. No evidence of DVT within lower extremities.
== END 2017-08-23 22:12 | disposition home or self-care (01) ==
LOC: H.ER 18:53
DX: L30.9 Dermatitis, unspecified (principal); E11.9 Type 2 diabetes mellitus without complications; Z79.84 Long term (current) use of oral hypoglycemic drugs; E78.5 Hyperlipidemia, unspecified; J45.909 Unspecified asthma, uncomplicated

== ENCOUNTER 2018-01-15 10:05 | Observation (INO) | payer SELFPAY ==
[2018-01-15 10:15] VITALS: BMI 52.1
[2018-01-15] MEDS ORDERED: Albuterol 0.083% Inhal Sol (2.5 mg/3 mL) UD INH STA ×3 (10:25→10:27)
[2018-01-15] MEDS ORDERED: Sodium Chloride 0.9% 1,000 ML IV STA (10:26)
--- NOTE | 2018-01-15 10:46 | ED PDOC ---
HPI: SOB/CHF/COPD Time Seen by Provider: 01/15/18 10:18 Chief Complaint (Nursing): Shortness Of Breath History Per: Patient (this is a 37 yo female with h/o asthma who presents with c /o worsening shortness of breath, cough for the past 2-3 weeks, despite frequent use of albuterol at home. She states that she called the [facility] and the earliest appointment is 01/28/2018. She denies fever or chills. She was hospitalized twice in the past 2 years. The last one was last year.) History/Exam Limitations: no limitations Past Medical History Reviewed: Historical Data, Nursing Documentation, Vital Signs Vital Signs: Last Vital Signs Temp 98.3 F 01/15/18 10:15 Pulse 84 01/15/18 10:15 Resp 20 01/15/18 10:24 BP 146/88 01/15/18 10:15 Pulse Ox 97 01/15/18 10:48 - Medical History PMH: Asthma, Diabetes, Hyperlipidemia Denies: Chronic Kidney Disease - Surgical History Surgical History: Appendectomy, Cholecystectomy, - Family History Family History: States: Unknown Family Hx - Living Arrangements Living Arrangements: With Family - Social History Current smoker - smoking cessation education provided: No - Home Medications Home Medications: Ambulatory Orders Medication Instructions Recorded Calcium Carbonate [Caltrate] 1 tab PO DAILY #1 tab 05/23/17 Ethinyl Estradiol/Drospirenone 1 tab PO DAILY #1 tablet 05/23/17 [Ocella 3 mg-0.03 mg Tablet] metFORMIN [glucOPHAGE] 850 mg PO DAILY #1 tab 05/23/17 Albuterol 0.083% [Albuterol 3 ml IH Q4 PRN #20 neb 07/23/17 Sulfate 3 Ml] Albuterol HFA [Ventolin HFA 90 2 puff IH Q4H #1 puff 07/23/17 mcg/actuation (8 g)] Fluticasone/Salmeterol 1 each IH Q12 #1 aer.pow.ba 07/23/17 [Fluticasone-Salmeterol 113-14] predniSONE [predniSONE Tab] 40 mg PO DAILY #7 tab 07/23/17 Amoxicillin 1,000 mg PO DAILY #18 tablet 08/17/17 Naproxen [Naprosyn] 500 mg PO BID PRN #15 tablet 08/17/17 Colloidal Oatmeal [Eucerin Eczema 226 gm TP BID #1 cream..g. 08/23/17 Relief] - Allergies Allergies/Adverse Reactions: Allergies Allergy/AdvReac Type Severity Reaction Status Date / Time No Known Allergies Allergy Verified 07/22/17 21:06 Review of Systems ROS Statement: Except As Marked, All Systems Reviewed And Found Negative Constitutional: Negative for: Fever, Chills Respiratory: Positive for: Cough, Shortness of Breath Gastrointestinal: Negative for: Nausea, Vomiting Physical Exam - Reviewed Nursing Documentation Reviewed: Yes Vital Signs Reviewed: Yes - Physical Exam Appears: Positive for: Well, Non-toxic, Uncomfortable (mild labored breathing) Head Exam: Positive for: ATRAUMATIC, NORMAL INSPECTION, NORMOCEPHALIC Skin: Positive for: Normal Color, Warm, DRY Eye Exam: Positive for: Normal appearance, EOMI ENT: Positive for: Normal ENT Inspection Neck: Positive for: Normal, Painless ROM Cardiovascular/Chest: Positive for: Regular Rate, Rhythm Respiratory: Positive for: Decreased Breath Sounds, Wheezing (bilaterally; expiratory) Gastrointestinal/Abdominal: Positive for: Normal Exam, Soft Back: Positive for: Normal Inspection Extremity: Positive for: Normal ROM Neurologic/Psych: Positive for: Alert, Oriented - Laboratory Results Result Diagrams: 01/15/18 10:45 01/15/18 10:45 - ECG O2 Sat by Pulse Oximetry: 97 - Progress Re-evaluation Time: 12:30 Condition: Re-examined, Improving,but remains with symptoms (still has high pitched expiratory wheezing) Medical Decision Making Medical Decision Making: peak flow after 3 nebs and solumedrol is 250. predicted for age and height is 474. She is not feeling better. Will admit. Case d/w Dr. Jasso Disposition - Clinical Impression Clinical Impression: Exacerbation of asthma - Patient ED Disposition Is Patient to be Admitted: Yes Doctor Will See Patient In The: Hospital - Disposition Disposition: Transfer of Care Disposition Time: 12:40 Condition: FAIR Forms: [facility] (Icelandic) - Pt Status Changed To: Hospital Disposition Of: Observation - POA Present On Arrival: None
[2018-01-15 10:53] LABS: BASO # 0.1 K/uL (0.0-0.2); BASO % 1.1 % (0.0-2.0); EOS # 1.1 K/uL (0.0-0.7); EOS % 11.4 % (0.0-4.0); HEMOGLOBIN 14.1 g/dL (12.0-16.0); LYMPH # 2.3 K/uL (1.0-4.3); LYMPH % 23.1 % (20.0-40.0); MEAN CELL VOLUME 82.7 fl (81.0-99.0); MEAN CORPUSCULAR HEMOGLOBIN 27.2 pg (27.0-31.0); MEAN CORPUSCULAR HGB CONC 32.9 g/dL (33.0-37.0); MEAN PLATELET VOLUME 8.4 fl (7.2-11.7); MONO # 0.5 K/uL (0.0-0.8); MONO % 5.3 % (0.0-10.0); NEUT # 5.8 K/uL (1.8-7.0); NEUT % 59.1 % (50.0-75.0); NRBC % 0.1 % (0.0-0.0); RBC 5.18 Mil/uL (3.80-5.20); RED CELL DISTRIBUTION WIDTH 13.6 % (11.5-14.5); WHITE BLOOD COUNT 9.9 K/uL (4.8-10.8)
[2018-01-15 10:59] LABS: BLOOD UREA NITROGEN 19 mg/dl (7-17); GFR AFRICAN-AMERICAN > 60; GFR NON-AFRICAN AMERICAN > 60
[2018-01-15] MEDS ORDERED: Famotidine 20mg/50ml Premix IVPB STA (13:10)
--- NOTE | 2018-01-15 13:23 | CP.PCM.HP ---
History of Present Illness - History of Present Illness History of Present Illness: 37 yo lady with past medical history of PCOS, dyslipidemia, IGT who presented to the ED with SOB/cough. She stated that symptoms began 2 weeks ago and states began with some minor dry coughing and was in relation with seasonal allergies. Symptoms progressively worsened last night with increased dyspnea and cough. Patient was using inhaler throughout the night without improvement so she came to ED. Patient was last admitted for asthma exacerbation 05/2017. Denies chills but admits to tactile fever last night. Denies abdominal pain, rash, chest pain , palpitations, headaches, recent travel, n/v/d/c. PMD: Florencio Jasso PMHx: PCOS, IGT, dyslipidemia Psurghx: appendix 1986; galbladder 2009; c/s 2013 Meds: Albuterol 108 mcg; Fluticasone, Metformin 850 mg Daily; Ocella 3-0.03 Social Hx: Denies smoking, alcohol, illicit drugs ED course: VSS, normal O2 sat on room air Duonebs x 3 Solumedrol 125mg peakflow 250 (baseline for patient is 300-350) bilateral expiratory wheezing noted, with improvement though symptoms still present Present on Admission - Present on Admission Any Indicators Present on Admission: No Review of Systems - Review of Systems All systems: reviewed and no additional remarkable complaints except (mentioned in HPI) Past Patient History - Past Medical History & Family History Past Medical History?: Yes - Past Social History Smoking Status: Never Smoked - CARDIAC Hx Cardiac Disorders: Yes Other/Comment: Hyperlipidemia - PULMONARY Hx Respiratory Disorders: Yes - NEUROLOGICAL Hx Neurological Disorder: No - HEENT Hx HEENT Problems: No - RENAL Hx Chronic Kidney Disease: No - ENDOCRINE/METABOLIC Hx Endocrine Disorders: Yes Hx Diabetes Mellitus Type 2: Yes Other/Comment: PCOS, IGT (pre-diabetic) - HEMATOLOGICAL/ONCOLOGICAL Hx Blood Disorders: No - INTEGUMENTARY Hx Dermatological Problems: No - MUSCULOSKELETAL/RHEUMATOLOGICAL Hx Falls: No - GASTROINTESTINAL Hx Gastrointestinal Disorders: No - GENITOURINARY/GYNECOLOGICAL Hx Genitourinary Disorders: No Other/Comment: LMP 05/05/17 - PSYCHIATRIC Hx Psychophysiologic Disorder: No Hx Substance Use: No - SURGICAL HISTORY Hx Appendectomy: Yes Hx Cholecystectomy: Yes - ANESTHESIA Hx Anesthesia: Yes Hx Anesthesia Reactions: No Hx Malignant Hyperthermia: No Meds Allergies/Adverse Reactions: Allergies Allergy/AdvReac Type Severity Reaction Status Date / Time No Known Allergies Allergy Verified 07/22/17 21:06 Physical Exam - Constitutional Appears: Well, Non-toxic, No Acute Distress, Other (obese) - Head Exam Head Exam: ATRAUMATIC, NORMAL INSPECTION, NORMOCEPHALIC - Eye Exam Eye Exam: Normal appearance - ENT Exam ENT Exam: Normal Exam - Neck Exam Neck exam: Positive for: Normal Inspection - Respiratory Exam Respiratory Exam: Wheezes (bilateral expiratory present in all gar[place]), NORMAL BREATHING PATTERN. absent: Rales - Cardiovascular Exam Cardiovascular Exam: REGULAR RHYTHM, RRR, +S1, +S2 - GI/Abdominal Exam GI & Abdominal Exam: Normal Bowel Sounds, Soft. absent: Tenderness - Extremities Exam Extremities exam: Positive for: normal inspection. Negative for: calf tenderness, pedal edema - Back Exam Back exam: NORMAL INSPECTION - Neurological Exam Neurological exam: Alert, Oriented x3 - Psychiatric Exam Psychiatric exam: Normal Affect, Normal Mood - Skin Skin Exam: Dry, Intact, Normal Color, Warm Results - Vital Signs Recent Vital Signs: Last Vital Signs Temp 98.3 F 01/15/18 10:15 Pulse 84 01/15/18 10:15 Resp 20 01/15/18 12:45 BP 146/88 01/15/18 10:15 Pulse Ox 97 01/15/18 12:40 - Labs Result Diagrams: 01/15/18 10:45 01/15/18 10:45 Labs: Laboratory Results - last 24 hr 01/15/18 01/15/18 10:45 10:45 WBC 9.9 RBC 5.18 Hgb 14.1 Hct 42.8 MCV 82.7 MCH 27.2 MCHC 32.9 L RDW 13.6 Plt Count 273 MPV 8.4 Neut % (Auto) 59.1 Lymph % (Auto) 23.1 [place] % (Auto) 5.3 Eos % (Auto) 11.4 H Baso % (Auto) 1.1 Neut # (Auto) 5.8 Lymph # (Auto) 2.3 [place] # (Auto) 0.5 Eos # (Auto) 1.1 H Baso # (Auto) 0.1 Sodium 144 Potassium 4.2 Chloride 103 Carbon Dioxide 26 Anion Gap 19 BUN 19 H Creatinine 0.4 L Est GFR ( Amer) > 60 Est GFR (Non-Af Amer) > 60 Random Glucose 95 Calcium 9.0 Assessment & Plan (1) Asthma exacerbation Status: Acute Onset Date: 09/01/15 (2) PCOS (polycystic ovarian syndrome) Status: Chronic (3) DVT prophylaxis Status: Acute - Assessment and Plan (Free Text) Assessment: 37 yo F pmhx PCOS, IGT, dyslipidemia admitted for asthma exacerbation. Plan 1) Asthma exacerbation - Admit to Telemetry for further monitoring - Continue with duonebs TID, 2L O2 via NC PRN, methylprednisolone 40mg BID - add singular to daily regime - Follow labs, CXR - follow peak flow, baseline 300-350 2) PCOS/IGT -hold ocp; continue metformin 3) DVT prophylaxis - SCD - Lovenox - Date & Time Date: 01/15/18 Time: 13:41
[2018-01-15] MEDS ORDERED: Famotidine 20mg/50ml 20 MG/50 ML BAG IVPB ONE (13:49)
[2018-01-15] MEDS ORDERED: guaiFENesin-Codeine 100-10mg/5ml Syrup (5 ml) UD PO PRN (13:57)
[2018-01-15] MEDS ORDERED: Albuterol-Ipratrop 3 mg / 0.5 (3 ml) UD INH SCH (14:00)
[2018-01-15] MEDS ORDERED: guaiFENesin-Codeine 100-10mg/5ml Syrup (5 ml) UD ONE (14:33)
--- NOTE | 2018-01-15 17:09 | CARD ---
APPROVED REPORT EKG Measurement Heart [id number] <Conclusion> Normal sinus rhythm Left anterior fascicular block Prolonged QT Abnormal ECG
[2018-01-15] MEDS ORDERED: Albuterol-Ipratrop 3 mg / 0.5 (3 ml) UD ONE (17:46)
[2018-01-15] MEDS ORDERED: methylPREDNISolone 40 MG in Sodium Chloride 0.9% 50 ML IVPB SCH (21:00)
[2018-01-15] MEDS: MethylPREDNISolone 40 mg Vial IVP SCH (22:18)
[2018-01-15 23:41] VITALS: RESP 18
[2018-01-15] MEDS: Albuterol-Ipratrop 3 mg / 0.5 (3 ml) UD INH SCH (23:42)
[2018-01-16 06:36] LABS: HEMOGLOBIN 14.4 g/dL (12.0-16.0); MEAN CELL VOLUME 83.3 fl (81.0-99.0); MEAN CORPUSCULAR HEMOGLOBIN 27.4 pg (27.0-31.0); MEAN CORPUSCULAR HGB CONC 32.9 g/dL (33.0-37.0); RBC 5.26 Mil/uL (3.80-5.20); WHITE BLOOD COUNT 15.2 K/uL (4.8-10.8)
[2018-01-16 06:49] LABS: BLOOD UREA NITROGEN 13 mg/dl (7-17); CALCIUM 9.4 mg/dL (8.4-10.2); GFR AFRICAN-AMERICAN > 60; GFR NON-AFRICAN AMERICAN > 60
[2018-01-16] MEDS ORDERED: Enoxaparin 40 mg Syringe SC SCH (09:00)
[2018-01-16] MEDS: MethylPREDNISolone 40 mg Vial IVP SCH (09:07)
--- NOTE | 2018-01-16 09:23 | CP.PCM.PN ---
Subjective - Date & Time of Evaluation Date of Evaluation: 01/16/18 Time of Evaluation: 07:30 Objective - Vital Signs/Intake and Output Vital Signs (last 24 hours): Temp Pulse Resp BP Pulse Ox 98.3 F 79 18 122/77 98 01/16/18 07:45 01/16/18 07:45 01/16/18 07:45 01/16/18 07:45 01/16/18 07:45 - Medications Medications: Current Medications Albuterol/Ipratropium (Duoneb 3 Mg/0.5 Mg (3 Ml) Ud) 3 ml INH RQ8 [facility] Last Admin: 01/15/18 23:42 Dose: 3 ml Enoxaparin Sodium (Lovenox) 40 mg SC DAILY RADHA PRN Reason: Protocol Last Admin: 01/16/18 09:06 Dose: 40 mg Guaifenesin/Codeine Phosphate (Robitussin W/Codeine) 5 ml PO Q6 PRN PRN Reason: Cough Last Admin: 01/15/18 14:33 Dose: 5 ml Metformin HCl (Glucophage) 1,000 mg PO BID [facility] Last Admin: 01/16/18 09:06 Dose: 1,000 mg Methylprednisolone (Solu-Medrol) 40 mg IVP Q12 [facility] Last Admin: 01/16/18 09:07 Dose: 40 mg Montelukast Sodium (Singulair) 10 mg PO DAILY [facility] Last Admin: 01/16/18 09:07 Dose: 10 mg Ondansetron HCl (Zofran Odt) 4 mg PO Q8H PRN PRN Reason: Nausea/Vomiting - Labs Labs: 01/16/18 06:15 01/16/18 06:15 Assessment and Plan - Assessment and Plan (Free Text) Assessment: 37 yo F pmhx PCOS, IGT, dyslipidemia admitted for asthma exacerbation. Plan 1) Asthma exacerbation - Admit to Telemetry for further monitoring - Continue with duonebs TID, 2L O2 via NC PRN, methylprednisolone 40mg BID - add singular to daily regime - Follow labs, CXR - follow peak flow, baseline 300-350 2) PCOS/IGT -hold ocp; continue metformin 3) DVT prophylaxis - SCD - Lovenox
[2018-01-16 11:46] VITALS: TEMP 98.1; O2SAT 97
--- NOTE | 2018-01-16 12:20 | RAD ---
HISTORY: asthma exacerbation/cough COMPARISON: Chest radiographs 05/23/2017. TECHNIQUE: Chest PA and lateral FINDINGS: LUNGS: No active pulmonary disease. PLEURA: No significant pleural effusion identified. No pneumothorax apparent. CARDIOVASCULAR: Normal. OSSEOUS STRUCTURES: No significant abnormalities. VISUALIZED UPPER ABDOMEN: Normal. OTHER FINDINGS: None. IMPRESSION: No interval acute cardiopulmonary disease appreciated.
[2018-01-16] MEDS: guaiFENesin-Codeine 100-10mg/5ml Syrup (5 ml) UD PO SCH ×2 (13:13→16:46)
--- NOTE | 2018-01-16 14:55 | CP.PCM.DIS ---
Provider - Provider Date of Admission: 01/15/18 12:41 Attending physician: Yuki Suarez MD Primary care physician: Dr Jasso at [facility]. Time Spent in preparation of Discharge (in minutes): 25 Diagnosis - Discharge Diagnosis (1) Asthma exacerbation Status: Acute Onset Date: 09/01/15 Comment: -Improved. D/C home with Prednisone x 4 days, Singulair, Albuterol pump and Robutessin w/codeine Syrup. Hospital Course - Lab Results Lab Results: Most Recent Lab Values WBC 15.2 K/uL (4.8-10.8) H D 01/16/18 06:15 RBC 5.26 Mil/uL (3.80-5.20) H 01/16/18 06:15 Hgb 14.4 g/dL (12.0-16.0) 01/16/18 06:15 Hct 43.8 % (34.0-47.0) 01/16/18 06:15 MCV 83.3 fl (81.0-99.0) 01/16/18 06:15 MCH 27.4 pg (27.0-31.0) 01/16/18 06:15 MCHC 32.9 g/dL (33.0-37.0) L 01/16/18 06:15 RDW 14.0 % (11.5-14.5) 01/16/18 06:15 Plt Count 307 K/uL (130-400) 01/16/18 06:15 MPV 8.4 fl (7.2-11.7) 01/15/18 10:45 Neut % (Auto) 59.1 % (50.0-75.0) 01/15/18 10:45 Lymph % (Auto) 23.1 % (20.0-40.0) 01/15/18 10:45 [place] % (Auto) 5.3 % (0.0-10.0) 01/15/18 10:45 Eos % (Auto) 11.4 % (0.0-4.0) H 01/15/18 10:45 Baso % (Auto) 1.1 % (0.0-2.0) 01/15/18 10:45 Neut # (Auto) 5.8 K/uL (1.8-7.0) 01/15/18 10:45 Lymph # (Auto) 2.3 K/uL (1.0-4.3) 01/15/18 10:45 [place] # (Auto) 0.5 K/uL (0.0-0.8) 01/15/18 10:45 Eos # (Auto) 1.1 K/uL (0.0-0.7) H 01/15/18 10:45 Baso # (Auto) 0.1 K/uL (0.0-0.2) 01/15/18 10:45 Sodium 142 mmol/l (132-148) 01/16/18 06:15 Potassium 4.2 MMOL/L (3.6-5.0) 01/16/18 06:15 Chloride 105 mmol/L (98-107) 01/16/18 06:15 Carbon Dioxide 24 mmol/L (22-30) 01/16/18 06:15 Anion Gap 17 (10-20) 01/16/18 06:15 BUN 13 mg/dl (7-17) 01/16/18 06:15 Creatinine 0.4 mg/dl (0.7-1.2) L 01/16/18 06:15 Est GFR ( Amer) > 60 01/16/18 06:15 Est GFR (Non-Af Amer) > 60 01/16/18 06:15 Random Glucose 147 mg/dL (65-105) H 01/16/18 06:15 Calcium 9.4 mg/dL (8.4-10.2) 01/16/18 06:15 - Hospital Course Hospital Course: 37 y/o F was admitted for evaluation and management of asthmatic exacerbation last afternoon. Pt was started on scheduled Albuterol neb and Methylprednisolone. Pt's SOB was much better, cough improved and physical exam showed no wheezing today. Pt stable, d/c home with albuterol inhaler, Singulair , Prednisone for 4 days and cough suppressant. - Date & Time of H&P Date of H&P: 01/15/18 Time of H&P: 13:21 Discharge Exam - Head Exam Head Exam: ATRAUMATIC, NORMAL INSPECTION, NORMOCEPHALIC - Eye Exam Eye Exam: EOMI, Normal appearance - Respiratory Exam Respiratory Exam: NORMAL BREATHING PATTERN, UNREMARKABLE. absent: Rales, Rhonchi, Wheezes - Cardiovascular Exam Cardiovascular Exam: REGULAR RHYTHM, +S1, +S2 - Neurological Exam Neurological exam: Alert, Oriented x3 - Psychiatric Exam Psychiatric exam: Normal Affect, Normal Mood Discharge Plan - Discharge Medications Prescriptions: Albuterol Sulfate [Ventolin Hfa] 2 puff IH Q6 PRN #1 hfa.aer.ad PRN Reason: Shortness Of Breath guaiFENesin/Codeine [Robitussin w/Codeine] 5 ml PO Q6 #1 bottle Montelukast [Singulair] 10 mg PO DAILY #30 tab - Follow Up Plan Condition: FAIR Disposition: HOME/ ROUTINE Additional Instructions: -Please take medications as directed. Prednisone 1 tab daily x 4 days, Singulair 1 tab daily, Albuterol pump 2 puff as needed every 4-6 hours, Codeine Syrup 5ml as needed every 6 hours. -F/U with PCP, Dr Jasso on 01/28/18 at 3:20pm.
[2018-01-16 15:38] VITALS: BP 133/84; PULSE 93
[2018-01-16] MEDS: Albuterol-Ipratrop 3 mg / 0.5 (3 ml) UD INH SCH (15:41)
== END 2018-01-16 16:50 | disposition home or self-care (01) ==
LOC: H.ER 10:05 → H.ERHOLD 12:41 → H.TEL 18:16
PROVIDERS: ADMIT Family Medicine Geriatric Medicine; ATTEND Family Medicine Geriatric Medicine
DX: J45.901 Unspecified asthma with (acute) exacerbation (principal); E11.9 Type 2 diabetes mellitus without complications; E78.5 Hyperlipidemia, unspecified; Z90.49 Acquired absence of other specified parts of digestive tract; E28.2 Polycystic ovarian syndrome
CPT/HCPCS: 36415; 71046; 80048; 81025; 85025; 85027; 93005; 94640; 96361; 96372; 96374; 96375; 96376; 99285; G0378; J1650; J2920; J2930; J7030